=== PATIENT | male | born 1960 | race Caucasian/White ===

== ENCOUNTER 2016-08-12 06:19 | Inpatient (IN) | payer SELFPAY ==
[~2016-08-12] VITALS: Ht 165.1 cm; Wt 81.6 kg
[2016-08-12] MEDS ORDERED: MORPHINE SULFATE 4 MG/ML CPJ (NOT FOR IM USE) IV STA (06:34)
[2016-08-12] MEDS ORDERED: ASPIRIN 81MG TABLET PO STA (06:34)
[2016-08-12] MEDS ORDERED: ONDANSETRON HCL 4MG/2ML VIAL IV STA (06:34)
[2016-08-12] MEDS ORDERED: NITROGLYCERIN OINT 1GM/INCH UDPKT TD STA (06:34)
[2016-08-12 07:04] LABS: BASOPHILS % 0.7 % (0.0-2.0); EOSINOPHILS % 1.7 % (0.0-5.0); HEMATOCRIT. 42.9 % (42.0-52.0); HEMOGLOBIN. 14.8 g/dL (14.0-18.0); LYMPHOCYTES % 14.4 % (20.0-50.0); MEAN CORPUSCULAR HEMOGLOBIN 31.3 pg (28.0-32.0); MEAN PLATELET VOLUME 7.2 fl (7.4-10.4); MONOCYTES % 7.7 % (2.0-8.0); NEUTROPHILS % 75.5 % (40.0-76.0); PLATELET 308 x1000/uL (130-400); RED BLOOD CELL COUNT 4.71 mill/uL (4.7-6.1); RED CELL DISTRIBUTION WIDTH 13.1 % (11.6-14.6)
[2016-08-12 07:22] LABS: CARBON DIOXIDE 24 mEq/L (21-32); CHLORIDE 104 mEq/L (98-107); CREATINE KINASE 188 IU/L (39-308); CREATINE KINASE MB FRACTION 1.7 ng/mL (0.5-3.6); TROPONIN I < 0.02 ng/mL (0.00-0.04)
[2016-08-12 07:27] LABS: PARTIAL THROMBOPLASTIN TIME 27.5 sec (24.0-34.0); PROTHROMBIN TIME 10.4 sec
[2016-08-12 07:40] LABS: *AMPHETAMINES SCREEN URINE PRESUMTIVE POSITIVE (NEGATIVE); *BARBITURATES SCREEN URINE NEGATIVE (NEGATIVE); *BENZODIAZEPINES SCREEN URINE NEGATIVE (NEGATIVE); *COCAINE SCREEN URINE PRESUMTIVE POSITIVE (NEGATIVE); CANNABINOID URINE SCREEN NEGATIVE (NEGATIVE); METHADONE URINE SCREEN NEGATIVE (NEGATIVE); OPIATES URINE SCREEN NEGATIVE (NEGATIVE); PHENCYCLIDINE URINE SCREEN NEGATIVE (NEGATIVE)
[2016-08-12 11:48] VITALS: BP 177/113
[2016-08-12 12:00] VITALS: BP 177/112
[2016-08-12] MEDS ORDERED: CLONIDINE 0.1MG TABLET PO PRN (12:15)
[2016-08-12] MEDS ORDERED: HYDROCODONE/ACETAMINOPHEN 5/325MG TABLET PO PRN (12:15)
[2016-08-12] MEDS ORDERED: ACETAMINOPHEN 325MG TABLET PO PRN (12:15)
[2016-08-12] MEDS ORDERED: DIPHENHYDRAMINE 50MG/ML VIAL IV PRN (12:15)
[2016-08-12] MEDS ORDERED: IPRATROPIUM/ALBUTEROL 0.5-3(2.5)MG/3ML NEB INH PRN (12:15)
[2016-08-12] MEDS ORDERED: ONDANSETRON HCL 4MG/2ML VIAL IV PRN (12:15)
[2016-08-12 16:00] VITALS: BP 118/76
[2016-08-12] MEDS ORDERED: POTASSIUM CHLORIDE 20MEQ/PACKET PO NR (16:15)
[2016-08-12] MEDS: PANTOPRAZOLE 40MG DR TABLET PO SCH (16:40)
[2016-08-12 20:00] VITALS: BP 136/90
[2016-08-12] MEDS ORDERED: ENOXAPARIN 40MG/0.4ML SYR SUBCUT SCH (21:00)
[2016-08-12] MEDS ORDERED: ATORVASTATIN CALCIUM 10MG TABLET PO SCH (21:00)
[2016-08-12] MEDS: METOPROLOL TARTRATE 50MG TABLET PO SCH (21:50)
[2016-08-13] VITALS: BP 150/89
[2016-08-13 04:00] VITALS: BP 147/87
[2016-08-13 06:04] LABS: BASOPHILS % 0.9 % (0.0-2.0); EOSINOPHILS % 7.2 % (0.0-5.0); HEMATOCRIT. 42.8 % (42.0-52.0); HEMOGLOBIN. 14.5 g/dL (14.0-18.0); LYMPHOCYTES % 22.9 % (20.0-50.0); MEAN CORPUSCULAR HEMOGLOBIN 31.3 pg (28.0-32.0); MEAN CORPUSCULAR VOLUME 92.6 fL (80.0-94.0); MEAN PLATELET VOLUME 7.4 fl (7.4-10.4); MONOCYTES % 12.2 % (2.0-8.0); NEUTROPHILS % 56.8 % (40.0-76.0); PLATELET 287 x1000/uL (130-400); RED BLOOD CELL COUNT 4.62 mill/uL (4.7-6.1); RED CELL DISTRIBUTION WIDTH 13.3 % (11.6-14.6)
[2016-08-13 06:52] LABS: CARBON DIOXIDE 27 mEq/L (21-32); CHLORIDE 104 mEq/L (98-107); HDL CHOLESTEROL 33 mg/dL (40-59); LDL CHOLESTEROL 114 mg/dL (5-100)
[2016-08-13] MEDS: PANTOPRAZOLE 40MG DR TABLET PO SCH (06:54)
[2016-08-13] MEDS: METOPROLOL TARTRATE 50MG TABLET PO SCH (08:08)
[2016-08-13 08:09] VITALS: BP 132/79
[2016-08-13 12:03] VITALS: BP 129/87
[2016-08-13 15:56] VITALS: BP 134/82
[2016-08-13 16:38] VITALS: BP 134/82
== END 2016-08-13 17:20 | disposition home or self-care (01) | DRG 198 ==
LOC: ER 06:19 → 6WST 07:45 → EDBEDREQ 07:50 → ENRESERV 09:17
PROVIDERS: ADMIT Internal Medicine; ATTEND Internal Medicine
DX: I24.9 Acute ischemic heart disease, unspecified (principal); I10 Essential (primary) hypertension; F10.20 Alcohol dependence, uncomplicated; F14.10 Cocaine abuse, uncomplicated; F15.10 Other stimulant abuse, uncomplicated; E78.5 Hyperlipidemia, unspecified; E66.9 Obesity, unspecified; R00.0 Tachycardia, unspecified; R73.9 Hyperglycemia, unspecified; E78.1 Pure hyperglyceridemia; Z91.19 Patient's noncompliance with other medical treatment and regimen; Z68.30 Body mass index [BMI] 30.0-30.9, adult
CPT/HCPCS: 36415; 71010; 80053; 80061; 80305; 82550; 82553; 83690; 83880; 84443; 84484; 85025; 85610; 85730; 87040; 87086; 93005; 93306; 96374; 96375; 99291; J1650; J2270; J2405

== ENCOUNTER 2016-10-13 21:49 | Emergency (ER) | payer MEDICAID, OTHER ==
[~2016-10-13] VITALS: Ht 165.1 cm; Wt 80.0 kg
[2016-10-13 23:21] LABS: BASOPHILS % 0.8 % (0.0-2.0); CHLORIDE 104 mEq/L (98-107); EOSINOPHILS % 8.4 % (0.0-5.0); HEMATOCRIT. 39.7 % (42.0-52.0); HEMOGLOBIN. 13.6 g/dL (14.0-18.0); MEAN CORPUSCULAR HEMOGLOBIN 31.5 pg (28.0-32.0); MEAN CORPUSCULAR VOLUME 92.3 fL (80.0-94.0); MEAN PLATELET VOLUME 7.6 fl (7.4-10.4); MONOCYTES % 8.9 % (2.0-8.0); NEUTROPHILS % 58.9 % (40.0-76.0); PLATELET 266 x1000/uL (130-400); RED BLOOD CELL COUNT 4.31 mill/uL (4.7-6.1); RED CELL DISTRIBUTION WIDTH 13.1 % (11.6-14.6)
[2016-10-13 23:25] LABS: CARBON DIOXIDE 25 mEq/L (21-32)
[2016-10-13 23:32] LABS: TROPONIN I < 0.02 ng/mL (0.00-0.04)
[2016-10-14 00:20] VITALS: BP 137/80
== END 2016-10-14 02:00 | disposition home or self-care (01) ==
LOC: ER 22:40
DX: K29.70 Gastritis, unspecified, without bleeding (principal); R07.9 Chest pain, unspecified
CPT/HCPCS: 36415; 71010; 80048; 84484; 85025; 85379; 93005; 99285; Z7610

== ENCOUNTER 2016-11-16 19:51 | Emergency (ER) | payer MEDICAID, OTHER ==
[~2016-11-16] VITALS: Ht 165.1 cm; Wt 81.0 kg
[2016-11-16] MEDS ORDERED: ASPIRIN 81MG TABLET PO ONE (21:15)
[2016-11-16] MEDS ORDERED: NITROGLYCERIN 0.4MG TABLET SL SL PRN (21:15)
[2016-11-16 21:38] LABS: EOSINOPHILS % 6.8 % (0.0-5.0); HEMATOCRIT. 42.6 % (42.0-52.0); HEMOGLOBIN. 14.5 g/dL (14.0-18.0); LYMPHOCYTES % 22.5 % (20.0-50.0); MEAN CORPUSCULAR HEMOGLOBIN 31.5 pg (28.0-32.0); MEAN CORPUSCULAR VOLUME 92.7 fL (80.0-94.0); MEAN PLATELET VOLUME 7.3 fl (7.4-10.4); MONOCYTES % 9.1 % (2.0-8.0); NEUTROPHILS % 60.6 % (40.0-76.0); PLATELET 277 x1000/uL (130-400); RED CELL DISTRIBUTION WIDTH 13.2 % (11.6-14.6)
[2016-11-16 21:44] LABS: PROTHROMBIN TIME 10.2 sec (9.4-11.6)
[2016-11-16 21:54] LABS: CARBON DIOXIDE 26 mEq/L (21-32); CHLORIDE 105 mEq/L (98-107); TROPONIN I < 0.02 ng/mL (0.00-0.04)
[2016-11-16 22:13] LABS: *AMPHETAMINES SCREEN URINE NEGATIVE (NEGATIVE); *BARBITURATES SCREEN URINE NEGATIVE (NEGATIVE); *BENZODIAZEPINES SCREEN URINE NEGATIVE (NEGATIVE); *COCAINE SCREEN URINE NEGATIVE (NEGATIVE); CANNABINOID URINE SCREEN NEGATIVE (NEGATIVE); METHADONE URINE SCREEN NEGATIVE (NEGATIVE); OPIATES URINE SCREEN NEGATIVE (NEGATIVE); PHENCYCLIDINE URINE SCREEN NEGATIVE (NEGATIVE)
[2016-11-17] MEDS ORDERED: CLONIDINE 0.1MG TABLET PO ONE (02:15)
[2016-11-17 03:52] VITALS: BP 114/71
== END 2016-11-17 03:56 | disposition home or self-care (01) ==
LOC: ER 19:51
DX: R07.89 Other chest pain (principal); R00.1 Bradycardia, unspecified; I44.4 Left anterior fascicular block; R51 Headache; Z98.890 Other specified postprocedural states; R03.0 Elevated blood-pressure reading, without diagnosis of hypertension
CPT/HCPCS: 36415; 71010; 80053; 80305; 84484; 85025; 85610; 93005; 99285; Z7610

== ENCOUNTER 2016-11-24 12:30 | Inpatient (IN) | payer MEDICAID, OTHER ==
[~2016-11-24] VITALS: Ht 165.1 cm; Wt 88.7 kg
[2016-11-24] MEDS ORDERED: MORPHINE SULFATE 4 MG/ML CPJ (NOT FOR IM USE) IV ONE (14:30)
[2016-11-24] MEDS ORDERED: ONDANSETRON HCL 4MG/2ML VIAL IV ONE (14:30)
[2016-11-24 15:03] LABS: BASOPHILS % 0.8 % (0.0-2.0); EOSINOPHILS % 7.4 % (0.0-5.0); HEMATOCRIT. 40.7 % (42.0-52.0); LYMPHOCYTES % 21.8 % (20.0-50.0); MEAN CORPUSCULAR HEMOGLOBIN 31.7 pg (28.0-32.0); MEAN CORPUSCULAR VOLUME 92.2 fL (80.0-94.0); MEAN PLATELET VOLUME 7.4 fl (7.4-10.4); MONOCYTES % 8.6 % (2.0-8.0); NEUTROPHILS % 61.4 % (40.0-76.0); PLATELET 274 x1000/uL (130-400); RED BLOOD CELL COUNT 4.41 mill/uL (4.7-6.1)
[2016-11-24 15:10] LABS: PARTIAL THROMBOPLASTIN TIME 27.5 sec (23.4-31.0)
[2016-11-24 15:21] LABS: CARBON DIOXIDE 24 mEq/L (21-32); CHLORIDE 107 mEq/L (98-107); TROPONIN I < 0.02 ng/mL (0.00-0.04)
[2016-11-24 21:00] VITALS: BP 167/67
[2016-11-24 21:31] VITALS: BP 167/67
[2016-11-24] MEDS ORDERED: ATOR40TA70 PO (21:39)
[2016-11-24] MEDS: NITROGLYCERIN OINT 1GM/INCH UDPKT TD SCH (21:54)
[2016-11-24] MEDS ORDERED: MORPHINE SULFATE 2 MG/ML CPJ (NOT FOR IM USE) IV PRN (22:00)
[2016-11-24] MEDS ORDERED: MORPHINE SULFATE 4 MG/ML CPJ (NOT FOR IM USE) IV PRN (22:48)
[2016-11-25] VITALS: BP 114/63
[2016-11-25 04:00] VITALS: BP 137/75
[2016-11-25] MEDS: NITROGLYCERIN OINT 1GM/INCH UDPKT TD SCH ×3 (05:30→21:58)
[2016-11-25] MEDS: HYDROCODONE/ACETAMINOPHEN 5/325MG TABLET PO PRN (06:19)
[2016-11-25 06:37] LABS: EOSINOPHILS % 9.4 % (0.0-5.0); HEMATOCRIT. 40.9 % (42.0-52.0); HEMOGLOBIN. 13.8 g/dL (14.0-18.0); LYMPHOCYTES % 27.9 % (20.0-50.0); MEAN CORPUSCULAR HEMOGLOBIN 31.3 pg (28.0-32.0); MEAN CORPUSCULAR VOLUME 93.2 fL (80.0-94.0); MEAN PLATELET VOLUME 7.7 fl (7.4-10.4); MONOCYTES % 8.1 % (2.0-8.0); NEUTROPHILS % 53.6 % (40.0-76.0); PLATELET 270 x1000/uL (130-400); RED BLOOD CELL COUNT 4.39 mill/uL (4.7-6.1); RED CELL DISTRIBUTION WIDTH 13.1 % (11.6-14.6)
[2016-11-25 07:42] LABS: CARBON DIOXIDE 27 mEq/L (21-32); CHLORIDE 105 mEq/L (98-107); HDL CHOLESTEROL 32 mg/dL (40-59); LDL CHOLESTEROL 150 mg/dL (5-100); TROPONIN I < 0.02 ng/mL (0.00-0.04)
[2016-11-25 08:00] VITALS: BP 125/74
[2016-11-25] MEDS: METOPROLOL TARTRATE 25MG TABLET PO SCH ×2 (09:00→21:00)
[2016-11-25] MEDS: FOLIC ACID 1MG TABLET PO SCH (09:01)
[2016-11-25] MEDS: MULTIVITAMINS,THER W-MINERALS TABLET PO SCH (09:07)
[2016-11-25] MEDS: AMLODIPINE 10MG TABLET PO SCH (09:08)
[2016-11-25] MEDS: THIAMINE HCL 100MG TABLET PO SCH (09:09)
[2016-11-25] MEDS: ENOXAPARIN 40MG/0.4ML SYR SUBCUT SCH (09:10)
[2016-11-25 12:00] VITALS: BP 123/73
[2016-11-25] MEDS ORDERED: ACETAMINOPHEN 325MG TABLET PO PRN (15:00)
[2016-11-25 15:31] LABS: CLARITY URINE CLEAR (CLEAR); COLOR URINE YELLOW (YELLOW); GLUCOSE URINE NEGATIVE (NEGATIVE); KETONES URINE NEGATIVE (NEGATIVE); LEUKOCYTE ESTERASE URINE NEGATIVE (NEGATIVE); NITRITE URINE NEGATIVE (NEGATIVE); OCCULT BLOOD URINE NEGATIVE (NEGATIVE); PH URINE 5.5 (4.5-8.0); PROTEIN URINE NEGATIVE (NEGATIVE); SPECIFIC GRAVITY URINE 1.008 (1.005-1.030); UROBILINOGEN URINE 0.2 E.U./dL (0.2-1.0)
[2016-11-25 15:45] LABS: *AMPHETAMINES SCREEN URINE NEGATIVE (NEGATIVE); *BARBITURATES SCREEN URINE NEGATIVE (NEGATIVE); *BENZODIAZEPINES SCREEN URINE NEGATIVE (NEGATIVE); *COCAINE SCREEN URINE NEGATIVE (NEGATIVE); CANNABINOID URINE SCREEN NEGATIVE (NEGATIVE); METHADONE URINE SCREEN NEGATIVE (NEGATIVE); OPIATES URINE SCREEN PRESUMTIVE POSITIVE (NEGATIVE); PHENCYCLIDINE URINE SCREEN NEGATIVE (NEGATIVE)
[2016-11-25 16:00] VITALS: BP 117/67
[2016-11-25] MEDS: GEMFIBROZIL 600MG TABLET PO SCH (19:06)
[2016-11-25 20:00] VITALS: BP 113/64
[2016-11-25] MEDS ORDERED: ATORVASTATIN CALCIUM 40MG TABLET PO SCH (21:00)
[2016-11-26] VITALS: BP 102/54
[2016-11-26] MEDS: HYDROCODONE/ACETAMINOPHEN 5/325MG TABLET PO PRN (01:00)
[2016-11-26 04:00] VITALS: BP 109/66
[2016-11-26] MEDS: NITROGLYCERIN OINT 1GM/INCH UDPKT TD SCH (06:00)
[2016-11-26 08:00] VITALS: BP 127/64
[2016-11-26] MEDS: GEMFIBROZIL 600MG TABLET PO SCH ×2 (08:51→21:05)
[2016-11-26] MEDS: FOLIC ACID 1MG TABLET PO SCH (08:52)
[2016-11-26] MEDS: AMLODIPINE 10MG TABLET PO SCH (08:52)
[2016-11-26] MEDS: THIAMINE HCL 100MG TABLET PO SCH (08:52)
[2016-11-26] MEDS: METOPROLOL TARTRATE 25MG TABLET PO SCH ×2 (08:52→21:05)
[2016-11-26] MEDS: MULTIVITAMINS,THER W-MINERALS TABLET PO SCH (08:52)
[2016-11-26] MEDS: ENOXAPARIN 40MG/0.4ML SYR SUBCUT SCH (08:53)
[2016-11-26] MEDS ORDERED: REGADENOSON 0.4 MG/5 ML IV SCH (10:30)
[2016-11-26] MEDS ORDERED: IOHEXOL-300 100 ML BOTTLE ONE (10:47)
[2016-11-26] MEDS ORDERED: REGADENOSON 0.4 MG/5 ML IV ONE (11:12)
[2016-11-26 16:00] VITALS: BP 108/67
[2016-11-26 16:18] LABS: CREATINE KINASE 62 IU/L (39-308); CREATINE KINASE MB FRACTION 0.8 ng/mL (0.5-3.6); TROPONIN I < 0.02 ng/mL (0.00-0.04)
[2016-11-26 16:23] LABS: T4 FREE 0.79 ng/dL (0.76-1.46)
[2016-11-26] MEDS: ASPIRIN 81MG TABLET PO SCH (16:33)
[2016-11-26 20:00] VITALS: BP 119/63
[2016-11-26] MEDS ORDERED: ATORVASTATIN CALCIUM 20MG TABLET PO SCH (21:00)
[2016-11-27 00:05] VITALS: BP 104/60
[2016-11-27 00:44] LABS: CREATINE KINASE 67 IU/L (39-308); CREATINE KINASE MB FRACTION 0.6 ng/mL (0.5-3.6); TROPONIN I < 0.02 ng/mL (0.00-0.04)
[2016-11-27 04:00] VITALS: BP 123/69
[2016-11-27 08:00] VITALS: BP 126/69
[2016-11-27] MEDS: ASPIRIN 81MG TABLET PO SCH (08:40)
[2016-11-27] MEDS: AMLODIPINE 10MG TABLET PO SCH (08:40)
[2016-11-27] MEDS: MULTIVITAMINS,THER W-MINERALS TABLET PO SCH (08:41)
[2016-11-27] MEDS: GEMFIBROZIL 600MG TABLET PO SCH (08:41)
[2016-11-27] MEDS: THIAMINE HCL 100MG TABLET PO SCH (08:41)
[2016-11-27] MEDS: FOLIC ACID 1MG TABLET PO SCH (08:41)
[2016-11-27] MEDS: ENOXAPARIN 40MG/0.4ML SYR SUBCUT SCH (08:42)
[2016-11-27] MEDS: METOPROLOL TARTRATE 25MG TABLET PO SCH (08:51)
[2016-11-27 10:14] LABS: CREATINE KINASE 69 IU/L (39-308); TROPONIN I < 0.02 ng/mL (0.00-0.04)
[2016-11-27 11:51] VITALS: BP 140/77
[2016-11-27] MEDS ORDERED: ATOR40TA70 PO (12:01)
== END 2016-11-27 15:00 | disposition home or self-care (01) | DRG 282 ==
LOC: ER 13:15 → ENRESERV 18:12 → 7WST 18:12
PROVIDERS: ADMIT Internal Medicine; ATTEND Internal Medicine
DX: K85.20 Alcohol induced acute pancreatitis without necrosis or infection (principal); F32.9 Major depressive disorder, single episode, unspecified; E78.5 Hyperlipidemia, unspecified; F10.10 Alcohol abuse, uncomplicated; I20.9 Angina pectoris, unspecified; N40.0 Benign prostatic hyperplasia without lower urinary tract symptoms; Z79.899 Other long term (current) drug therapy
CPT/HCPCS: 36415; 70470; 71010; 78452; 80048; 80053; 80061; 80305; 81003; 82550; 82553; 83036; 83690; 83880; 84439; 84443; 84484; 85025; 85379; 85610; 85730; 93005; 93017; 96374; 96375; 99285; A9500; J1650; J2270; J2405; J2785; Q9967